=== PATIENT | male | born 1945 | race Caucasian/White ===

== ENCOUNTER → 2023-07-16 10:26 | Outpatient (REF) | payer MEDICARE, OTHER, SELFPAY | LOC: HWRAD 10:26 | PROVIDERS: ATTENDING PHYSICIAN Family Medicine | DX: E04.2 Nontoxic multinodular goiter (principal) | CPT/HCPCS: 76536 ==

== ENCOUNTER → 2024-02-11 15:18 | Outpatient (REF) | payer MEDICARE, OTHER, SELFPAY | LOC: RAD 15:18 | PROVIDERS: ATTENDING PHYSICIAN Nurse Practitioner Family; FAMILY PHYSICIAN Family Medicine | DX: R91.1 Solitary pulmonary nodule (principal) | CPT/HCPCS: 71250 ==

== ENCOUNTER 2024-03-09 14:15 | Inpatient (IN) | payer MEDICARE, OTHER, SELFPAY ==
[2024-03-09] VITALS (17 sets, daily range): BP systolic 128–177; BP diastolic 57–119; O2SAT 81–89; BMI 28.8; BMI 29.2
--- NOTE | 2024-03-09 07:18 | ED.GENMED ---
Addendum entered and electronically signed by RAJIV Silva 03/09/24 13:49:
1:25 PM CAlled to room by RN who reports that patient became tachycardic in the 140s. EKG SVT with heart rate of 143. Patient had no chest pain. He does feel palpitations.Dr Flores at bedside. pt denies any new SOB. At that same time patient was
being evaluated by admitting hospitalist the patient spontaneously converted approximately 1:45 PM.
Patient re angelica sinus tach no acute distress
Original Note:
History of Present Illness
General
Chief Complaint: Weakness
Source: patient
Exam Limitations: none
Time Seen by Provider: 03/09/24 07:16
Nursing documentation reviewed up to this point in time: agreed with
History of Present Illness
History of Present Illness:
Patient is a 78-year-old male with past medical history of COPD chronic bronchitis asthma tachycardia and reflux presents today for evaluation. Patient reports he was sick a week with runny nose cough cold symptoms however this morning woke up
complaining of shortness of breath and feels very weak. He is not on O2 at home.
He reports he heard himself wheezing or' rattling this morning when breathing.'
He denies any chest pain. He denies any lower extremity swelling. No prior history of CHF.
Past History
Past History
ED Past Medical History: Asthma, COPD, GERD, HTN and Other (History of hiatal hernia, polyps, prostatic hypertrophy, macular degeneration, dry eyes)
ED Past Surgical History: Cardiac (Cardiac catheterization x2 which was normal) and Other (Right knee arthroscopy in the year 1999)
Social History
Tobacco: Former smoker
Alcohol: None
Personal:
Living: with family
Employment: Retired
Family History
Family History: Unable to obtain
Review of Systems
Review of Systems
Allergies reviewed?: Yes
All Other Systems: ROS reviewed and negative except as documented in HPI and ROS
Constitutional: Reports fatigue
Respiratory: Reports cough and trouble breathing
Cardiac: Reports no symptoms; Denies chest pain or palpitations
ABD/GI: Reports no symptoms; Denies diarrhea
: Reports no symptoms
Musculoskeletal: Reports no symptoms
Skin: Reports no symptoms
Neurological: Reports headache
Psychiatric: Reports no symptoms
Phy Exam
General Physical Exam
General Presentation: no apparent distress
General age: appears stated age
General Skin: warm and dry
General Habitus: elderly
General Mental: alert
General Hydration: dry mucous membranes
Course
Orders/Labs/Results
Orders:
Orders
03/09/24 07:28
IV Insert/Care/Rem.- Treatment PRN
03/09/24 07:29
Electrocardiogram (*1) Stat
Reason for Study: Other
Other Reason for Exam: chest pain
Cardiac Monitoring- Treatment ONCE
EKG- Treatment ONCE
CR Chest - 2 Views Urgent
Comment:
Reason For Exam: sob cough
03/09/24 07:31
0.9% Sodium Chloride 1000 ml [Nss] 1,000 ml IV BOLUS
03/09/24 07:35
Complete Blood Count/With Diff Urgent
Comprehensive Metabolic Panel Urgent
03/09/24 07:36
COVID-19 Antigen Urgent
Source: Nasal Swab
Influenza A+B Rapid Molecular Urgent
HEIDI Source: Nasal Swab
Specimen Description:
03/09/24 09:40
Acetaminophen [Tylenol] 650 mg PO NOW STA
Albuterol Nebs [Ventolin Nebules] 2.5 mg INH R NOW STA
03/09/24 11:31
Dexamethasone Sod Phosphate [Decadron] 10 mg IV NOW STA
Abnormal Lab Results
03/09/24
07:35
WBC 14.3 H 10^3/uL
(4.8-10.8)
Abs Immat Gran (auto) 0.1 H 10^3/uL
(0-0.05)
Absolute Neuts (auto) 12.7 H 10^3/uL
(1.4-6.5)
Absolute Lymphs (auto) 0.6 L 10^3/uL
(1.2-3.4)
Absolute Monos (auto) 0.9 H 10^3/uL
(0.1-0.6)
Neutrophils % 88.6 H %
(42.2-75.2)
Lymphocytes % 4.2 L %
(20.5-51.1)
Carbon Dioxide 21 L mmol/L
(22-30)
BUN 21 H mg/dl
(9-20)
Creatinine 1.4 H mg/dL
(0.7-1.3)
Glucose 164 H mg/dl
(70-99)
03/09/24 07:35
03/09/24 07:35
Vital Signs
Initial and Last Documented VS:
Initial Vital Signs
Temp Pulse Resp BP Pulse Ox
98.1 F 94 26 177/83 91
03/09/24 07:09 03/09/24 07:09 03/09/24 07:09 03/09/24 07:09 03/09/24 07:09
Last Documented Vital Signs
Temp Pulse Resp BP Pulse Ox
98.1 F 65 12 148/70 93
03/09/24 07:09 03/09/24 10:45 03/09/24 10:45 03/09/24 10:00 03/09/24 11:13
MDM/Problems Addressed
Differential Diagnosis Includes:
not limited to: COPD exacerbation, pneumonia, COVID, flu,
MDM/Problems Addressed:
Patient as documented is a 78-year-old male who has history of COPD not on O2 has been sick for the past week with bodyaches weakness cough however presented today with weakness and shortness of breath. Patient was hypoxic on room air white count
minimally out of 14.3. Patient has slight x-ray wheezing. Patient had an x-ray which is negative for pneumonia normal sodium potassium creatinine 1.4 however has been 1.4 in the past negative COVID-negative flu patient was given a nebulizer
treatment for wheezing likely COPD exacerbation related to viral syndrome however patient remains hypoxic in the 80s with ambulation and is not normally on O2 will admit for continued observation and nebulizer treatment steroids initially ordered
but patient reports he does not react well to steroids in the past, will hold off on steroids.
Patient has seen pulm here at [place].
*Radiology
Radiology exam reviewed: radiology read reviewed
*Pulse Oximetry
Patient hypoxic: yes
*EKG
Interpreted by ED Provider?: Yes
Interpretation: normal
Heart Rate: 71
Rhythm: sinus
Ischemia: non-specific ST changes
*Critical Care Note
Total Time (30-74mins, 75-104mins- exclusive of procedures): Not Applicable
ED Attending Note
-
Portions of this chart may have been created with voice recognition software.� Occasional wrong word or��sound alike� substitutions may have occurred due to the inherent limitations of voice recognition software.
Discharge Plan
Departure
Patient Disposition: Admit
Date of Disposition: 03/09/24
Time of Disposition: 11:51
Admit to: Med/Surg
Admit to doctor: hospitalist
Presentation/result/management discussed w/ accepting MD/DO: Hospitalist
Patient with high blood pressure during this ER visit?: Yes
Condition: Fair
Covid-19: Not Applicable
Discharge Problem:
COPD (chronic obstructive pulmonary disease), Acute viral syndrome, hypoxia
Prescriptions:
No Action
montelukast 10 MG tablet
10 mg PO QPM
dutasteride-tamsulosin 1 EACH capsule, ER multiphase 24 hr
1 ea PO QPM
Patient Comments:
0.5/ 0.4 mg strength
famotidine 20 mg Tablet
20 mg PO BID Qty: 0
diphenhydramine HCl [Benadryl] 25 mg Capsule
25 mg PO QPM
diltiazem HCl 360 mg capsule,extended release 24hr
360 mg PO QPM
Citrucel (sucrose) Powder
1 tbsp PO TID
albuterol sulfate 90 mcg/actuation Hfa Aerosol Inhaler
2 puff inhalation R Q4HPRN PRN (Reason: sob) Qty: 8.5 0RF
cholecalciferol (vitamin D3) [Vitamin D3] 25 mcg (1,000 unit) Capsule
25 mcg PO DAILY
levofloxacin 250 mg Tablet
250 mg PO DAILY Qty: 4 0RF
Rx Instructions:
next dose 09/01
prednisone 10 mg tablet
10 mg PO DIRECTED 6 Days Qty: 6 0RF
Rx Instructions:
starting 09/01 take 30mg (3 tabs) x 2 days, then 20mg x 2 days, then 10mg x 2 days
Referrals:
Fadia Mcbride MD [Family Provider] -
Interventions
Interventions:
*Risk Screen - Suicide Last Done: 03/09/24 07:11
*General Assessment Last Done: 03/09/24 07:31
*Neglect/Abuse Screening Last Done: 03/09/24 07:11
ED- Fall Risk Assessment Last Done: 03/09/24 07:31
*ED COVID-19 Vaccine History Last Done: 03/09/24 07:31
ED- Cardiac Assessment Last Done: 03/09/24 07:34
ED- Neurological Assessment Last Done: 03/09/24 07:34
ED- Pulmonary Assessment Last Done: 03/09/24 07:34
Discharge Date and Time
Print Language: NICARAGUAN
[2024-03-09] MEDS: NSS 1000 IV ×2 (07:46→20:12)
[2024-03-09 07:59] LABS: % Basophils 0.3 % (0-2); % Eosinophils 0.4 % (0-6); % Immature Granulocytes 0.4 % (0-0.5); % Lymphocytes 4.2 % (20.5-51.1); % Monocytes 6.1 % (1.7-9.3); % Neutrophils 88.6 % (42.2-75.2); Absolute Eosinophils 0.1 10^3/uL (0-0.7); Absolute Immature Granulocytes 0.1 10^3/uL (0-0.05); Absolute Lymphocytes 0.6 10^3/uL (1.2-3.4); Absolute Monocytes 0.9 10^3/uL (0.1-0.6); Absolute Neutrophils 12.7 10^3/uL (1.4-6.5); Hematocrit 47.1 % (39.0-52.0); Hemoglobin 16.2 g/dL (13.0-18.0); Mean Corp Hgb Conc. 34.4 g/dL (33.0-37.0); Mean Corpuscular Volume 87.2 fL (80.0-94.0); Mean Platelet Volume 9.5 fL (7.4-10.4); Nucleated Red Blood Cells % 0 % (-); Platelet Count 228 10^3/uL (130-400); Red Cell Dist. Width 14.1 % (11.5-14.5); White Blood Cell Count 14.3 10^3/uL (4.8-10.8)
[2024-03-09 08:05] LABS: ALT (SGPT) 21 U/L (0-50); Albumin 3.9 g/dl (3.5-5.0); Alkaline Phosphatase 115 U/L (38-126); Blood Urea Nitrogen 21 mg/dl (9-20); Calcium 9.2 mg/dl (8.4-10.2); Carbon Dioxide 21 mmol/L (22-30); Chloride 106 mmol/L (98-107); Estimated Creatinine Clearance 41 ml/min; Potassium 4.4 mmol/L (3.5-5.1); Sodium 139 mmol/L (135-145); Total Bilirubin 0.8 mg/dl (0.2-1.3); Total Protein 6.4 g/dl (6.3-8.2); eGFR 51.77
[2024-03-09 08:06] LABS: AST (SGOT) 22 U/L (17-59); Glucose 164 mg/dl (70-99)
[2024-03-09 08:07] LABS: COVID-19 Antigen Negative (Negative)
[2024-03-09] MEDS: TYLENOL 650 MG PO ×2 (10:12→20:17)
[2024-03-09] MEDS: VENTOLIN NEBULES 2.5 MG INH (10:12)
--- NOTE | 2024-03-09 13:28 | HPS.HSE ---
Family Physician
-
Family Physician: Fadia Mcbride
Chief Complaint
-
SOB, wheeze, weakness
History of Present Illness
The patient is a 78-year-old male with PMH significant for COPD,chronic bronchitis, asthma, tachycardia, and GERD, presents today for evaluation due to one week of runny nose, cold and URI symptoms, and woke up this am with SOB and generalized
weakness, not on O2 at home. He has wheezing with 'rattling this morning when breathing.' He also has hx of SVT and takes nightly Cardizem. He took his dose last night. He says his heart rate this am at home was 20 on the pulse oximetry, unclear if
this is an accurate reading - no symptoms other than those noted with generalized weakness. In ED he went into SVT, and rhythm broke to sinus after Valsalva and blowing into a tube. He is currently on 5 L O2 per NC, appears to be mouth breathing
more than through NC.
He denies any chest pain. He denies any lower extremity swelling. Desat to 80s in ED on RA despite ED txt.
COVID and Flu negative
WBC 14.3
CXR NAD
Medical History
Past Medical History
Past Medical History: Reports COPD, GERD, HTN and Other
Additional Past Medical History:
BPH
Past Surgical History: Reports Cholecystectomy and Other
Additional Past Surgical History:
Shoulder Surgery
Knee Arthroscopy
Social History
Tobacco: Former Smoker (Quit smoking 25 years ago. Approx 40 pack years total use.)
Alcohol: None
Drug: None
Personal:
Living: With Family
Family History
Family History: Other (Mother: Longevity)
Allergies / Home Medications
Allergies reflects when Allergies were last updated in [facility].
Home Medications with original date entered in [facility]
Allergy/Medication List:
Allergies
Allergy/AdvReac Type Severity Reaction Status Date / Time
amoxicillin Allergy Unknown Verified 09/13/22 19:48
amoxicillin trihydrate Allergy Unknown Verified 09/13/22 19:48
[From Augmentin]
Cephalosporins Allergy Unknown Verified 09/13/22 19:48
clavulanic acid Allergy Unknown Verified 09/13/22 19:48
fluticasone furoate Allergy muscle Verified 09/13/22 19:48
[From Arnuity Ellipta] aches
fluticasone propionate Allergy Unknown Verified 09/13/22 19:48
[From Advair Diskus]
guaifenesin [From Breonesin] Allergy muscle Verified 09/13/22 19:48
aches
potassium clavula Allergy Unknown Verified 09/13/22 19:48
*RETIRED-02/20/12
[From Augmentin]
salmeterol xinafoate Allergy Unknown Verified 09/13/22 19:48
[From Advair Diskus]
albuterol AdvReac headache Verified 09/13/22 19:48
asthmanex Allergy Unknown Uncoded 09/07/22 18:51
servent Allergy Unknown Uncoded 09/07/22 18:51
Home Medications
dutasteride 0.5 mg-tamsulosin ER 0.4 mg capsule ext.release 24hr mphas 1 ea PO QPM Urinary issue 04/15/17
famotidine 20 mg tablet 20 mg PO BID Gastrointestinal issue ##0 04/15/17
montelukast 10 mg tablet 10 mg PO QPM Allergies 04/15/17
diphenhydramine HCl 25 mg capsule (Benadryl) 25 mg PO QPM Sleep 02/04/22
diltiazem HCl 360 mg capsule,extended release 24 hr 360 mg PO QPM Blood pressure 08/14/22
methylcellulose (with sugar) oral powder (Citrucel (sucrose) oral powder) 1 tbsp PO TID Constipation 08/14/22
albuterol sulfate 90 mcg/actuation aerosol inhaler 2 puff inhalation R Q4HPRN PRN sob #8.5 grams 08/17/22
budesonide 0.5 mg/2 mL suspension for nebulization 0.5 mg inhalation R DAILY 03/09/24
cholecalciferol (vitamin D3) 125 mcg (5,000 unit) tablet (Vitamin D3) 125 mcg PO DAILY 03/09/24
ibuprofen 200 mg tablet (Advil) 200 mg PO Q6HPRN PRN MILD PAIN 03/09/24
Review of Systems
-
A 12 point ROS was completed and negative except as noted: Yes
Physical Exam
Vital Signs
Vital Signs
Temp Pulse Resp BP Pulse Ox
98.6 F 72 17 149/57 90
03/09/24 13:17 03/09/24 13:00 03/09/24 13:00 03/09/24 13:00 03/09/24 13:00
Physical Exam
General: No Apparent Distress, Conversant and Other (purse lip breathing)
HEENT: NormoCephalic, Anicteric and Moist mucous membranes
Respiratory: Wheezes (Left mid and lower) and Other (decreased breath sounds b/l)
Cardiac: Tachycardia
GI: Soft, Non Tender and Non Distended
Musculoskeletal: No Clubbing, No Cyanosis and No Edema
Skin: Warm and Dry
Neuro: AO x 3 and No Motor Deficits
Psych: Calm and Intact Judgment/Insight
Laboratory Results
-
03/09/24 07:35
03/09/24 07:35
Laboratory Results
Total Bilirubin 0.8 mg/dl (0.2-1.3) 03/09/24 07:35
AST 22 U/L (17-59) 03/09/24 07:35
ALT 21 U/L (0-50) 03/09/24 07:35
Alkaline Phosphatase 115 U/L (38-126) 03/09/24 07:35
Data Reviewed
-
Diagnostic Radiology: Image Personally Visualized and interpreted and Report Reviewed by me ( 1. Chronic obstructive pulmonary disease. 2. Mild bibasilar interstitial opacities, similar compared to previous examinations, perhaps related to a chronic
infectious/inflammatory process or chronic interstitial lung disease.)
Impression/Plan
-
IMPRESSION:The patient is a 78-year-old male with PMH significant for COPD,chronic bronchitis, asthma, tachycardia, and GERD, presents today for evaluation due to one week of runny nose, cold and URI symptoms, and woke up this am with SOB and
generalized weakness, not on O2 at home. He has wheezing with 'rattling this morning when breathing.' He also has hx of SVT and takes nightly Cardizem. He took his dose last night. He says his heart rate this am at home was 20 on the pulse oximetry,
unclear if this is an accurate reading - no symptoms other than those noted with generalized weakness. In ED he went into SVT, and rhythm broke to sinus after Valsalva and blowing into a tube. He is currently on 5 L O2 per NC, appears to be mouth
breathing more than through NC.
He denies any chest pain. He denies any lower extremity swelling. Desat to 80s in ED on RA despite ED txt.
COVID and Flu negative
WBC 14.3
CXR NAD
#COPD exacerbation possibly precipitated by viral URI
-CXR w chronic findings:
1. Chronic obstructive pulmonary disease.
2. Mild bibasilar interstitial opacities, similar compared to previous examinations, perhaps related to a chronic infectious/inflammatory process or chronic interstitial lung disease.
-Pt has had reactions to steroids in the past, and is refusing steroids at this time (issues with hyperglycemia, required Lindquist catheter), hold on steroids for now
-Xopenex (due to arrythmia/SVT history) TID and prn
-Expectorant txt with RT/pulmonary toilet/cannot use Mucinex due to allergy muscle aches
-cont home dose Budesonide (on low dose due to history of headaches with full dose)
-Cont O2 5 liter, wean as able, and may need face mask-continue monitoring w RT
-consider Pulm Consult
#SVT, history of, in and out of SVT in ED, improved w maneuvers, asymptomatic
-will give Diltiazem home dose now then continue daily
-monitor on tele
#Hypertension
-cont Dilt, hold parameters
#GERD
-stable
#BPH
DVT proph-Lovenox
Full Code
--- NOTE | 2024-03-09 13:49 | EDRN ---
Pt's Tele alarming HR in 140's. EKG done to confirm ST. RN in room to check on pt's. Pt denies CP. VSS. Dr. Flores, Alexa [facility] [employer] and Dr. Stinson bedside to evaluate pt. Dr. Cason performed Carotid massage. Once pt leaned forward for MD to
auscultate lungs, pt's sustained 140's HR dropped to 80's, NSR. HR was sustained 140's for a total of 20 minutes. No new orders given at this time. Will continue to monitor. Spouse at bedside. Call umanzor within reach.
[2024-03-09] MEDS: CARDIZEM CD 360 MG PO (14:27)
[2024-03-09] MEDS: XOPENEX 1.25 MG INHALANT SOLUTION INH (19:58)
[2024-03-09] MEDS: PEPCID 20 MG PO (20:13)
[2024-03-09] MEDS: SINGULAIR 10 MG PO (20:14)
[2024-03-09] MEDS: LOVENOX 40 MG SC (20:14)
[2024-03-09] MEDS: BENADRYL 25 MG PO (20:18)
[2024-03-10 03:22] VITALS: BP 141/61
[2024-03-10 06:07] VITALS: BMI 29.5
[2024-03-10 07:54] VITALS: BP 166/67
[2024-03-10 08:18] LABS: % Basophils 0.2 % (0-2); % Eosinophils 0.8 % (0-6); % Immature Granulocytes 0.3 % (0-0.5); % Lymphocytes 8.5 % (20.5-51.1); % Monocytes 4.3 % (1.7-9.3); % Neutrophils 85.9 % (42.2-75.2); Absolute Eosinophils 0.1 10^3/uL (0-0.7); Absolute Monocytes 0.5 10^3/uL (0.1-0.6); Absolute Neutrophils 10.1 10^3/uL (1.4-6.5); Hematocrit 43.7 % (39.0-52.0); Mean Corp Hgb Conc. 34.3 g/dL (33.0-37.0); Mean Corpuscular Hgb 31.2 pg (27.0-31.0); Mean Corpuscular Volume 90.9 fL (80.0-94.0); Mean Platelet Volume 10.2 fL (7.4-10.4); Nucleated Red Blood Cells % 0 % (-); Platelet Count 209 10^3/uL (130-400); Red Blood Cell Count 4.81 10^6/uL (4.70-6.10); Red Cell Dist. Width 14.3 % (11.5-14.5); White Blood Cell Count 11.8 10^3/uL (4.8-10.8)
[2024-03-10] MEDS: XOPENEX 1.25 MG INHALANT SOLUTION INH (08:18)
[2024-03-10] MEDS: PULMICORT 0.5 MG INH (08:18)
[2024-03-10 08:56] LABS: Blood Urea Nitrogen 19 mg/dl (9-20); Calcium 8.5 mg/dl (8.4-10.2); Carbon Dioxide 24 mmol/L (22-30); Chloride 108 mmol/L (98-107); Estimated Creatinine Clearance 44 ml/min; Glucose 103 mg/dl (70-99); Potassium 4.5 mmol/L (3.5-5.1); Sodium 141 mmol/L (135-145); eGFR 56.58
[2024-03-10] MEDS: PEPCID 20 MG PO ×2 (09:04→20:12)
[2024-03-10] MEDS: MOTRIN 200 MG PO (09:10)
--- NOTE | 2024-03-10 10:36 | PTCARENOTE ---
Patient had a brief burst of tachycardia 130-140. Patient was symptomatic with headache, tingling around his mouth and new pain in his upper thighs. Patient now in a SR 60-80. Patient states, 'This feels like before in the emergency room. I don't
feel good.' Physician made aware.
[2024-03-10 11:00] VITALS: BP 146/64
--- NOTE | 2024-03-10 11:23 | CM ---
CM reviewed chart, met with patient bedside. Patient resides with his in a cape code style home, six steps to enter. Patient denies use of DMe, denies VN or SNF history. Patient currently on O2, not on home O2. Patient confirms PCP Fadia
Rae, pharmacy [facility] [address] Patient confirms prescription coverage, denies insecurities at home. CM will continue to follow for all discharge planning needs.
Plan; home no needs, watch for home O2 needs.
[2024-03-10] MEDS: DELTASONE 40 MG PO (12:38)
--- NOTE | 2024-03-10 13:01 | W.PN.HOSP.TC ---
Today's Communication/Plan
-
Start systemic steroids
Pulmonary consultation
Wean oxygen as tolerated
Monitor on telemetry
Assessment / Plan
Assessment / Plan
IMPRESSION:The patient is a 78-year-old male with PMH significant for COPD,chronic bronchitis, asthma, tachycardia, and GERD, presents today for evaluation due to one week of runny nose, cold and URI symptoms, and woke up this am with SOB and
generalized weakness, not on O2 at home. He has wheezing with 'rattling this morning when breathing.' He also has hx of SVT and takes nightly Cardizem. He took his dose last night. He says his heart rate this am at home was 20 on the pulse oximetry,
unclear if this is an accurate reading - no symptoms other than those noted with generalized weakness. In ED he went into SVT, and rhythm broke to sinus after Valsalva and blowing into a tube. He is currently on 5 L O2 per NC, appears to be mouth
breathing more than through NC.
He denies any chest pain. He denies any lower extremity swelling. Desat to 80s in ED on RA despite ED txt.
COVID and Flu negative
WBC 14.3
CXR NAD
#COPD exacerbation possibly precipitated by viral URI
# Acute hypoxic respiratory failure
-CXR noted
-Started on prednisone
-Xopenex (due to arrythmia/SVT history) prn
-Expectorant txt with RT/pulmonary toilet/cannot use Mucinex due to allergy muscle aches
-cont home dose Budesonide (on low dose due to history of headaches with full dose)
-Cont Oxygen and wean as tolerated
-Pulm consulted.
#SVT, history
-Cont cardizem
-monitor on tele
#Hypertension
-cont Dilt, hold parameters
#GERD
-stable
#BPH
-cont flomax
DVT proph-Lovenox
Full Code
Anticipated Discharge: > 48 hours
Subjective/Interval History
-
Date of Service: March 10, 2024
states of sob
was tachycardic earlier
had cold last week
Objective Data
-
Labs:
Laboratory Results
03/10/24
07:37
WBC 11.8 H
Hgb 15.0
Hct 43.7
Plt Count 209
Sodium 141
Potassium 4.5
Chloride 108 H
Carbon Dioxide 24
BUN 19
Creatinine 1.3
Glucose 103 H
Calcium 8.5
Vital Signs:
Vital Signs
Temp Pulse Resp BP Pulse Ox
99.6 F 69 16 146/64 92
03/10/24 11:00 03/10/24 11:00 03/10/24 11:00 03/10/24 11:00 03/10/24 11:00
I&O
03/09/24 03/10/24 03/11/24
06:59 06:59 06:59
Intake Total 1000 / 1000
Output Total 175 / 175
Balance 825 / 825
Physical Exam
-
General: Well Developed and No Apparent Distress
HEENT: Normocephalic, Atraumatic, Moist Mucous Membranes and Oxygen
Respiratory: Wheezes and Decreased Breath Sounds
Cardiac: Regular Rhythm and S1/S2; Negative Murmur, Rub or Gallop
GI: Soft, Nontender, Nondistended and Normal Bowel Sounds; Negative Organomegaly
Rectal: Deferred by Provider
Musculoskeletal: No Clubbing, No Cyanosis and No Edema
Skin: Negative Rash
Neuro: Awake, AO x 3, Tremors and Nonfocal/Grossly Intact
Psych: Anxious
Data Reviewed
-
Total Time Spent with Patient (in minutes): 51
[2024-03-10 15:00] VITALS: BP 157/66
[2024-03-10] MEDS: CARDIZEM CD 360 MG PO (17:49)
[2024-03-10] MEDS: LOVENOX 40 MG SC (17:50)
[2024-03-10] MEDS: SINGULAIR 10 MG PO (17:50)
[2024-03-10] MEDS: BENADRYL 25 MG PO (17:50)
[2024-03-10 19:30] VITALS: BP 163/70
[2024-03-10] MEDS: NON-FORMULARY ITEM 1 TAB PO (20:11)
[2024-03-10] MEDS: SENOKOT-S 1 TABLET PO (20:13)
[2024-03-10 23:34] VITALS: BP 155/68
[2024-03-11] VITALS (7 sets, daily range): BP systolic 134–165; BP diastolic 64–74; PULSE 65; O2SAT 94; BMI 29.2
[2024-03-11] MEDS: PULMICORT 0.5 MG INH (07:38)
[2024-03-11] MEDS: MIRALAX 17 GRAMS PO (08:12)
[2024-03-11] MEDS: DELTASONE 40 MG PO (08:13)
[2024-03-11] MEDS: SENOKOT-S 1 TABLET PO ×2 (08:13→19:40)
[2024-03-11] MEDS: PEPCID 20 MG PO ×2 (08:13→19:40)
--- NOTE | 2024-03-11 10:19 | CON.PUL ---
Consultation
Consultation Request
Date/Time Consultation Requested: 03/11/2024-7 AM
Date/Time Consultation Performed: 03/11/2024-7:30 AM
Requesting Provider: Hospitalist
Performing Provider: Dr. Candelario
Reason for Consultation: COPD
Medical History
-
Chief Complaint: Shortness of breath
History of Present Illness:
78-year-old male with underlying COPD followed by Dr. Allison as well as chronic bronchitis, asthma, GERD who presented with shortness of breath and increased generalized weakness had an episode of SVT which broke into sinus after Valsalva and
pulmonary consulted for COPD 03/11/2024.. The patient does complain of some increased shortness of breath from his baseline. He denies any chest pain, chest tightness, has some wheezing, no congestion, productive cough, pleurisy, abdominal pain,
reflux, leg swelling or weakness.
Past Medical History
Past Medical History: None (COPD. Chronic bronchitis. Asthma. GERD. Hypertension. BPH. Paroxysmal atrial tachycardia. Osteoporosis. Chronic kidney disease.)
Social History
Tobacco: Former Smoker (50 pack-year quit 1995)
Alcohol: None
Drug: None
Personal:
Living: With Family
Occupational Exposures: No known asbestos exposure
Environmental Exposures: No known tuberculosis exposure
Family History
Family History: Other (Father-brain tumor. Mother-heart disease.)
Allergies / Home Medications
Allergies
Allergy/AdvReac Type Severity Reaction Status Date / Time
amoxicillin Allergy Unknown Verified 09/13/22 19:48
amoxicillin trihydrate Allergy Unknown Verified 09/13/22 19:48
[From Augmentin]
Cephalosporins Allergy Unknown Verified 09/13/22 19:48
clavulanic acid Allergy Unknown Verified 09/13/22 19:48
fluticasone furoate Allergy muscle Verified 09/13/22 19:48
[From Arnuity Ellipta] aches
fluticasone propionate Allergy Unknown Verified 09/13/22 19:48
[From Advair Diskus]
guaifenesin [From Breonesin] Allergy muscle Verified 09/13/22 19:48
aches
mometasone furoate Allergy Unknown Verified 03/10/24 17:40
[From Asmanex Twisthaler]
potassium clavula Allergy Unknown Verified 09/13/22 19:48
*RETIRED-02/20/12
[From Augmentin]
salmeterol [From Serevent] Allergy Vomiting Verified 03/10/24 17:40
salmeterol xinafoate Allergy Unknown Verified 09/13/22 19:48
[From Advair Diskus]
albuterol AdvReac headache Verified 09/13/22 19:48
Home Medications
�Medication �Instructions �Recorded �Confirmed �Last Taken �Type
dutasteride 0.5 mg-tamsulosin ER 1 ea PO QPM Urinary issue 04/15/17 03/09/24 03/08/24 History
0.4 mg capsule ext.release 24hr
mphas
famotidine 20 mg tablet 20 mg PO BID Gastrointestinal 04/15/17 03/09/24 03/09/24 History
issue ##0
montelukast 10 mg tablet 10 mg PO QPM Allergies 04/15/17 03/09/24 03/08/24 History
diphenhydramine HCl 25 mg capsule 25 mg PO QPM Sleep 02/04/22 03/09/24 03/08/24 History
(Benadryl)
diltiazem HCl 360 mg 360 mg PO QPM Blood pressure 08/14/22 03/09/24 03/08/24 History
capsule,extended release 24 hr
methylcellulose (with sugar) oral 1 tbsp PO TID Constipation 08/14/22 03/09/24 03/09/24 History
powder (Citrucel (sucrose) oral
powder)
albuterol sulfate 90 mcg/actuation 2 puff inhalation R Q4HPRN PRN sob 08/17/22 03/09/24 Unknown Rx
aerosol inhaler #8.5 grams
budesonide 0.5 mg/2 mL suspension 0.5 mg inhalation R DAILY 03/09/24 03/09/24 03/09/24 History
for nebulization Lung/Breathing Issues
cholecalciferol (vitamin D3) 125 125 mcg PO DAILY Supplement 03/09/24 03/09/24 03/09/24 History
mcg (5,000 unit) tablet (Vitamin
D3)
ibuprofen 200 mg tablet (Advil) 200 mg PO Q6HPRN PRN MILD PAIN 03/09/24 03/09/24 03/09/24 History
Review of Systems
-
Unable to Obtain full review of systems at this time due to: Other (Per HPI)
Vitals / Labs / Diagnostic Testing
Vital Signs
Temp Pulse Resp BP Pulse Ox
97.4 F 68 18 163/74 94
03/11/24 07:57 03/11/24 07:57 03/11/24 07:57 03/11/24 07:57 03/11/24 07:57
Lab Data
03/10/24 07:37
03/10/24 07:37
Microbiology
03/09/24 07:36 Nasal Swab Influenza Types A & B (GEMINI) - Final
Negative for Influenza A & B, NAAT
Negative results must be combined with clinical observations
and patient history.
Nucleic Acid Amplification test (NAAT)performed on the
[employer] platform.
Diagnostic Testing:
Physical Exam
-
Exam:
Well-nourished and well-developed in no apparent distress
HEENT-atraumatic, normocephalic
Neck-supple, no JVD, no bruit
Heart-regular rate and rhythm-no murmurs, rubs or gallops
Chest with diminished breath sounds, prolonged expiratory time and few expiratory wheezes
Back-no tenderness
Abdomen-soft, nontender, nondistended, no hepatosplenomegaly
Extremities-no cyanosis, clubbing, edema and good peripheral pulses
Integument-intact, no rashes, lesions or ecchymosis
Neurology-alert and oriented, nonfocal motor and sensory exam
Assessment
-
78-year-old male with underlying COPD followed by Dr. Allison as well as chronic bronchitis, asthma, GERD who presented with shortness of breath and increased generalized weakness had an episode of SVT which broke into sinus after Valsalva and
pulmonary consulted for COPD 03/11/2024.
COPD with acute exacerbation.
Viral bronchitis.
SVT-broke in the emergency room with Valsalva.
Mild leukocytosis-WBC 14.3.
Mild hyperglycemia
Conditions present prior to admission:
COPD.
Chronic bronchitis.
Asthma.
Pulmonary nodule
Pulm hypertension
Decreased diffusing capacity
Overweight
GERD.
Hypertension.
Osteoporosis
Vitamin D deficiency
Chronic kidney disease
Cholecystectomy. Bilateral cataract surgery. Laser surgery for glaucoma. Shoulder surgery. Tonsillectomy.
Plan
History and presentation consistent with COPD exacerbation.
Supplemental oxygen as needed.
Assessment discharge. Supplemental oxygen needs prior to discharge.
Continue inhalers.
Nebulizers-Xopenex and ipratropium, bromide-had SVT.
Mucolytic's.
Singulair continues
Mucus clearing devices
Prednisone 40 mg with slow taper.
Monitor for SVT recurrence.
Monitor blood sugar.
Insulin supplementation as needed.
DVT prophylaxis-on Lovenox.
GI prophylaxis-on famotidine.
Nutrition
Or immobilization
Patient last saw Dr. Allison 01/31/2023 and saw Katey VANCE in our office 02/25-will make appointment soon after discharge
Diagnostic data:
CXR 10/26/22: no acute findings. Hyperinflation. Mild basilar scar. Prior lower lobe opacity has resolved
Chest x-ray 03/09/24-COPD changes, mild basilar opacifications
CT of the chest 08/29/22. New patchy airspace disease in both lower lobes with a pattern suggesting bilateral pneumonia. There is a small pulmonary nodule. The site of previous airspace disease which is likely inflammatory. There are severe changes
of emphysema.
CT chest 02/11/24-patchy area opacifications, bilateral lower lobes and mild distal bronchiectasis and mucoid impactions, similar to prior films, no new suspicious or enlarging nodules, severe apical predominant centrilobular emphysema, dilated main
pulmonary artery up to 3.9 cm
Echo 10/27/22: Normal biventricular function, PA pressure 38
Echo 2014: Normal left ventricular size, thickness and function. Normal right ventricular systolic function with a top normal RV size. Mildly dilated right atrium. Dilated aortic root, mostly at the sinus of Valsalva and not beyond.
Michi 02/06/24: FVC 3.11/85%, FEV1 1.46/56%, ratio 47%.� No significant BD response.� Moderate obstruction
PFT 10/25/2022: FVC 4.19/118%, FEV1 1.78/70%, ratio 42%, 11% BD response in FEV1, post BD results FVC 4.46/126%, FEV1 1.98/78%, ratio 44%, TLC 6.69/106%, DLCO 8.55/38%, DLCO/VA
Data Reviewed
-
PFT: Report reviewed by me
EKG: Report reviewed by me
Radiology: Image personally visualized and interpreted and Report reviewed by me
CT Scan: Report reviewed by me
Medical Tests (Nuc Med, Echo etc): Report reviewed by me
Labs: Labs reviewed by me
Old Records: Reviewed
Total Time Spent with Patient (in minutes): 65
--- NOTE | 2024-03-11 11:53 | CM ---
CM reviewed chart, met with patient bedside. Patient denies any needs at this time. Patient remains on O2, will watch for home O2 needs. CM will continue to follow for all discharge planning needs.
Plan; return home, watch for O2 needs.
--- NOTE | 2024-03-11 12:17 | W.PN.HOSP.TC ---
Today's Communication/Plan
-
wean o2
Prednisone
pulm eval pending
PT eval
Assessment / Plan
Assessment / Plan
IMPRESSION:The patient is a 78-year-old male with PMH significant for COPD,chronic bronchitis, asthma, tachycardia, and GERD, presents today for evaluation due to one week of runny nose, cold and URI symptoms, and woke up this am with SOB and
generalized weakness, not on O2 at home. He has wheezing with 'rattling this morning when breathing.' He also has hx of SVT and takes nightly Cardizem. He took his dose last night. He says his heart rate this am at home was 20 on the pulse oximetry,
unclear if this is an accurate reading - no symptoms other than those noted with generalized weakness. In ED he went into SVT, and rhythm broke to sinus after Valsalva and blowing into a tube. He is currently on 5 L O2 per NC, appears to be mouth
breathing more than through NC.
He denies any chest pain. He denies any lower extremity swelling. Desat to 80s in ED on RA despite ED txt.
COVID and Flu negative
WBC 14.3
CXR NAD
#COPD exacerbation possibly precipitated by viral URI
# Acute hypoxic respiratory failure
-CXR noted
-Started on prednisone
-Xopenex (due to arrythmia/SVT history) prn
-Expectorant txt with RT/pulmonary toilet/cannot use Mucinex due to allergy muscle aches
-cont home dose Budesonide (on low dose due to history of headaches with full dose)
-Cont Oxygen and wean as tolerated
-Overall treatment/management difficult due to patient multiple allergies and side effects of medications
-Pulm consulted.
#SVT, history
-Cont cardizem
-monitor on tele
#Hypertension Primary
-cont Dilt, hold parameters
#GERD
-stable
#BPH
-cont flomax/dutasteride
DVT proph-Lovenox
Full Code
Anticipated Discharge: 24 - 48 hours
Subjective/Interval History
-
Date of Service: March 11, 2024
states sob has improved
Objective Data
-
Vital Signs:
Vital Signs
Temp Pulse Resp BP Pulse Ox
97.8 F 62 18 140/64 93
03/11/24 11:18 03/11/24 11:18 03/11/24 11:18 03/11/24 11:18 03/11/24 11:18
I&O
03/10/24 03/11/24 03/12/24
06:59 06:59 06:59
Intake Total 1000 / 1000 660 / 660
Output Total 175 / 175 1900 / 1900
Balance 825 / 825 -1240 / -1240
Physical Exam
-
General: Well Developed and No Apparent Distress
HEENT: Normocephalic, Atraumatic, Moist Mucous Membranes and Oxygen
Respiratory: Wheezes (improving) and Decreased Breath Sounds
Cardiac: Regular Rhythm and S1/S2; Negative Murmur, Rub or Gallop
GI: Soft, Nontender, Nondistended and Normal Bowel Sounds; Negative Organomegaly
Rectal: Deferred by Provider
Musculoskeletal: No Clubbing, No Cyanosis and No Edema
Skin: Negative Rash
Neuro: Awake, Alert, Oriented, AO x 3, Tremors and Nonfocal/Grossly Intact
Psych: Calm
[2024-03-11] MEDS: CARDIZEM CD 360 MG PO (17:19)
[2024-03-11] MEDS: LOVENOX 40 MG SC (17:19)
[2024-03-11] MEDS: NON-FORMULARY ITEM 1 TAB PO (17:19)
[2024-03-11] MEDS: BENADRYL 25 MG PO (17:20)
[2024-03-11] MEDS: SINGULAIR 10 MG PO (17:21)
[2024-03-12 03:30] VITALS: BP 140/70
[2024-03-12 05:03] VITALS: BMI 28.9
[2024-03-12] MEDS: PULMICORT 0.5 MG INH (07:21)
[2024-03-12 07:44] VITALS: BP 166/77
[2024-03-12] MEDS: MIRALAX 17 GRAMS PO (08:04)
[2024-03-12] MEDS: TYLENOL 650 MG PO (08:09)
[2024-03-12] MEDS: SENOKOT-S 1 TABLET PO ×2 (08:09→20:25)
[2024-03-12] MEDS: PEPCID 20 MG PO (08:09)
[2024-03-12] MEDS: DELTASONE 40 MG PO (08:09)
--- NOTE | 2024-03-12 09:08 | W.PN.PUL.V3 ---
Today's Communication / Plan
-
Penicillin with slow wean.
Wean oxygen.
Continue nebulizers and inhalers.
Outpatient pulmonary follow-up
Assessment
-
78-year-old male with underlying COPD followed by Dr. Allison as well as chronic bronchitis, asthma, GERD who presented with shortness of breath and increased generalized weakness had an episode of SVT which broke into sinus after Valsalva and
pulmonary consulted for COPD 03/11/2024.
COPD with acute exacerbation.
Viral bronchitis.
SVT-broke in the emergency room with Valsalva.
Mild leukocytosis-WBC 14.3.
Mild hyperglycemia
Conditions present prior to admission:
COPD.
Chronic bronchitis.
Asthma.
Pulmonary nodule
Pulm hypertension
Decreased diffusing capacity
Overweight
GERD.
Hypertension.
Osteoporosis
Vitamin D deficiency
Chronic kidney disease
Cholecystectomy. Bilateral cataract surgery. Laser surgery for glaucoma. Shoulder surgery. Tonsillectomy.
Plan
Respiratory status slowly improving-not quite back to his baseline.
Supplemental oxygen as needed.
Assessment discharge supplemental oxygen needs prior to discharge.
Continue inhalers.
Nebulizers-Xopenex and ipratropium bromide-had SVT.
Mucolytics
Singulair continues
Mucus clearing devices
Prednisone 40 mg with slow taper
Monitor for SVT recurrence.
Monitor blood sugar.
Insulin supplementation as needed.
DVT prophylaxis-on Lovenox.
GI prophylaxis-on famotidine.
Nutrition
Increase activity
Patient last saw Dr. Allison 01/31/2023 and saw Katey VANCE in our office 02/25-will make appointment soon after discharge
Diagnostic data:
CXR 10/26/22: no acute findings. Hyperinflation. Mild basilar scar. Prior lower lobe opacity has resolved
Chest x-ray 03/09/24-COPD changes, mild basilar opacifications
CT of the chest 08/29/22. New patchy airspace disease in both lower lobes with a pattern suggesting bilateral pneumonia. There is a small pulmonary nodule. The site of previous airspace disease which is likely inflammatory. There are severe changes
of emphysema.
CT chest 02/11/24-patchy area opacifications, bilateral lower lobes and mild distal bronchiectasis and mucoid impactions, similar to prior films, no new suspicious or enlarging nodules, severe apical predominant centrilobular emphysema, dilated main
pulmonary artery up to 3.9 cm
Echo 10/27/22: Normal biventricular function, PA pressure 38
Echo 2014: Normal left ventricular size, thickness and function. Normal right ventricular systolic function with a top normal RV size. Mildly dilated right atrium. Dilated aortic root, mostly at the sinus of Valsalva and not beyond.
Michi 02/06/24: FVC 3.11/85%, FEV1 1.46/56%, ratio 47%.� No significant BD response.� Moderate obstruction
PFT 10/25/2022: FVC 4.19/118%, FEV1 1.78/70%, ratio 42%, 11% BD response in FEV1, post BD results FVC 4.46/126%, FEV1 1.98/78%, ratio 44%, TLC 6.69/106%, DLCO 8.55/38%, DLCO/VA
Subjective Data
-
Date of Service:
Date of Service: March 12, 2024
Chief Complaint: Pulmonary Follow Up and Dyspnea Follow Up
Subjective:
Had episode of cough and shortness of breath this morning, improved, responding to nebulizers, has nebulizers at home, no chest pain, productive cough, has not productive cough and no abdominal pain
Review of Systems
General: Other ( per HPI)
Objective Data
Data Reviewed
Vital Signs / I&O:
Vital Signs
Temp Pulse Resp BP Pulse Ox
98.3 F 69 12 166/77 93
03/12/24 07:44 03/12/24 07:44 03/12/24 07:44 03/12/24 07:44 03/12/24 07:44
Intake and Output
03/11/24 03/12/24 03/13/24
06:59 06:59 06:59
Intake Total 660 / 660 1120 / 1120
Output Total 1900 / 1900 250 / 250
Balance -1240 / -1240 870 / 870
SaO2: 93
Nasal Cannula flow liters per minute: 3.5
Physical Exam
General: Respiratory Distress (n) and Comfortable
HEENT: Normocephalic and Anicteric
Cardiovascular: Regular Rhythm
Respiratory: Clear ( diminished breath sounds and prolonged expiratory time), Wheeze ( forced expiratory), Crackles, Non-Labored Respirations, Accessory Resp Muscle Use (n) and Stridor (n)
GI: Soft, Non Distended and Non Tender
Neurology: Awake, Alert and No Motor Deficits
Skin: Warm, Good Color, Cyanosis (n), Jaundice (n) and Rash (n)
Labs/Micro/Reports
Lab Data
03/10/24 07:37
03/10/24 07:37
Microbiology
03/09/24 07:36 Nasal Swab Influenza Types A & B (GEMINI) - Final
Negative for Influenza A & B, NAAT
Negative results must be combined with clinical observations
and patient history.
Nucleic Acid Amplification test (NAAT)performed on the
[facility] platform.
[2024-03-12 11:31] VITALS: BP 149/71
--- NOTE | 2024-03-12 11:38 | CM ---
CM reviewed chart, per PT, no skilled PT needs. Patient remains on O2. CM will continue to follow for all discharge planning needs.
Plan; home when stable, watch for O2 needs.
--- NOTE | 2024-03-12 11:38 | W.PN.HOSP.TC ---
Today's Communication/Plan
-
po steroids taper
wean o2 as tolerated
Pulm recs
Assessment / Plan
Assessment / Plan
IMPRESSION:The patient is a 78-year-old male with PMH significant for COPD,chronic bronchitis, asthma, tachycardia, and GERD, presents today for evaluation due to one week of runny nose, cold and URI symptoms, and woke up this am with SOB and
generalized weakness, not on O2 at home. He has wheezing with 'rattling this morning when breathing.' He also has hx of SVT and takes nightly Cardizem. He took his dose last night. He says his heart rate this am at home was 20 on the pulse oximetry,
unclear if this is an accurate reading - no symptoms other than those noted with generalized weakness. In ED he went into SVT, and rhythm broke to sinus after Valsalva and blowing into a tube. He is currently on 5 L O2 per NC, appears to be mouth
breathing more than through NC.
He denies any chest pain. He denies any lower extremity swelling. Desat to 80s in ED on RA despite ED txt.
COVID and Flu negative
WBC 14.3
CXR NAD
#COPD exacerbation possibly precipitated by viral URI
# Acute hypoxic respiratory failure
-CXR noted
-Started on prednisone 40mg and will probably require slow taper
-Xopenex (due to arrythmia/SVT history) prn
-Expectorant txt with RT/pulmonary toilet/cannot use Mucinex due to allergy muscle aches
-cont home dose Budesonide (on low dose due to history of headaches with full dose)
-Cont Oxygen and wean as tolerated
-Overall treatment/management difficult due to patient multiple allergies and side effects of medications
-remains on oxygen around 3-4L. wean as tolerated to keeps sats >88%.
-Pulm consulted.
#SVT, history
-Cont cardizem
-monitor on tele
#Hypertension Primary
-cont Dilt, hold parameters
#GERD
-stable
#BPH
-cont flomax/dutasteride
DVT proph-Lovenox
Full Code
PT/OT-Home VN.
Anticipated Discharge: 24 - 48 hours
Subjective/Interval History
-
Date of Service: March 12, 2024
states had anxiety attack earlier this morning
remains on oxygen
dry cough persists
Objective Data
-
Vital Signs:
Vital Signs
Temp Pulse Resp BP Pulse Ox
98.3 F 60 14 149/71 93
03/12/24 11:31 03/12/24 11:31 03/12/24 11:31 03/12/24 11:31 03/12/24 11:31
I&O
03/11/24 03/12/24 03/13/24
06:59 06:59 06:59
Intake Total 660 / 660 1120 / 1120
Output Total 1900 / 1900 250 / 250
Balance -1240 / -1240 870 / 870
Physical Exam
-
General: Well Developed and No Apparent Distress
HEENT: Normocephalic, Atraumatic, Moist Mucous Membranes and Oxygen
Respiratory: Decreased Breath Sounds
Cardiac: Regular Rhythm and S1/S2; Negative Murmur, Rub or Gallop
GI: Soft, Nontender, Nondistended and Normal Bowel Sounds; Negative Organomegaly
Rectal: Deferred by Provider
Musculoskeletal: No Clubbing, No Cyanosis and No Edema
Skin: Negative Rash
Neuro: Awake, Alert, Oriented, AO x 3, Tremors and Nonfocal/Grossly Intact
Psych: Anxious
[2024-03-12 15:49] VITALS: BP 152/71
[2024-03-12] MEDS: NON-FORMULARY ITEM 1 TAB PO (17:44)
[2024-03-12] MEDS: SINGULAIR 10 MG PO (17:45)
[2024-03-12] MEDS: CARDIZEM CD 360 MG PO (17:45)
[2024-03-12] MEDS: LOVENOX 40 MG SC (17:45)
[2024-03-12] MEDS: BENADRYL 25 MG PO (17:46)
[2024-03-12 19:57] VITALS: BP 162/62
[2024-03-12 23:36] VITALS: BP 157/85
[2024-03-13 03:33] VITALS: BP 151/65
[2024-03-13 05:30] VITALS: BMI 29.2
[2024-03-13 07:00] VITALS: BP 145/64
[2024-03-13] MEDS: XOPENEX 1.25 MG INHALANT SOLUTION INH (07:39)
[2024-03-13] MEDS: PULMICORT 0.5 MG INH (07:39)
--- NOTE | 2024-03-13 08:00 | PTCARENOTE ---
Addendum entered by Monisha Quinn RN 03/13/24 08:37:
Pulse ox on 2L N/C 94%. Pt denies shortness of breath.
Original Note:
Pulse ox on RA -, O2 2L placed via N/C.
[2024-03-13] MEDS: DELTASONE 40 MG PO (08:10)
[2024-03-13] MEDS: PEPCID 20 MG PO (08:11)
[2024-03-13] MEDS: SENOKOT-S 1 TABLET PO (08:11)
[2024-03-13] MEDS: MIRALAX 17 GRAMS PO (08:11)
[2024-03-13] MEDS: TYLENOL 650 MG PO (08:11)
--- NOTE | 2024-03-13 09:54 | W.PN.PUL.V3 ---
Today's Communication / Plan
-
Prednisone taper.
Nebulizers.
Inhalers.
Outpatient pulmonary follow-up
Assessment
-
78-year-old male with underlying COPD followed by Dr. Allison as well as chronic bronchitis, asthma, GERD who presented with shortness of breath and increased generalized weakness had an episode of SVT which broke into sinus after Valsalva and
pulmonary consulted for COPD 03/11/2024.
COPD with acute exacerbation.
Viral bronchitis.
SVT-broke in the emergency room with Valsalva.
Mild leukocytosis-WBC 14.3.
Mild hyperglycemia
Conditions present prior to admission:
COPD.
Chronic bronchitis.
Asthma.
Pulmonary nodule
Pulm hypertension
Decreased diffusing capacity
Overweight
GERD.
Hypertension.
Osteoporosis
Vitamin D deficiency
Chronic kidney disease
Cholecystectomy. Bilateral cataract surgery. Laser surgery for glaucoma. Shoulder surgery. Tonsillectomy.
Plan
.
Pulmonary status is improving.
Continue supplemental oxygen as needed
Assessment discharge supplemental oxygen needs prior to discharge.
Continue . His inhalers
Nebulizers-Xopenex and ipratropium bromide-had SVT.
Mucolytics
Singulair continues
Mucus clearing devices
Prednisone 40 mg continues with slow taper
Continue to monitor for SVT recurrence.
Monitor blood sugar.
Insulin supplementation as needed.
DVT prophylaxis-on Lovenox.
GI prophylaxis-on famotidine.
Nutrition
Increase activity
Patient last saw Dr. Allison 01/31/2023 and saw Katey VANCE in our office 02/25-will make appointment soon after discharge
Diagnostic data:
CXR 10/26/22: no acute findings. Hyperinflation. Mild basilar scar. Prior lower lobe opacity has resolved
Chest x-ray 03/09/24-COPD changes, mild basilar opacifications
CT of the chest 08/29/22. New patchy airspace disease in both lower lobes with a pattern suggesting bilateral pneumonia. There is a small pulmonary nodule. The site of previous airspace disease which is likely inflammatory. There are severe changes
of emphysema.
CT chest 02/11/24-patchy area opacifications, bilateral lower lobes and mild distal bronchiectasis and mucoid impactions, similar to prior films, no new suspicious or enlarging nodules, severe apical predominant centrilobular emphysema, dilated main
pulmonary artery up to 3.9 cm
Echo 10/27/22: Normal biventricular function, PA pressure 38
Echo 2014: Normal left ventricular size, thickness and function. Normal right ventricular systolic function with a top normal RV size. Mildly dilated right atrium. Dilated aortic root, mostly at the sinus of Valsalva and not beyond.
Michi 02/06/24: FVC 3.11/85%, FEV1 1.46/56%, ratio 47%.� No significant BD response.� Moderate obstruction
PFT 10/25/2022: FVC 4.19/118%, FEV1 1.78/70%, ratio 42%, 11% BD response in FEV1, post BD results FVC 4.46/126%, FEV1 1.98/78%, ratio 44%, TLC 6.69/106%, DLCO 8.55/38%, DLCO/VA
Subjective Data
-
Date of Service:
Date of Service: March 13, 2024
Chief Complaint: Pulmonary Follow Up and Dyspnea Follow Up
Subjective:
Feels better, less short of breath, though some dyspnea on exertion and some wheezing, no chest pain or abdominal pain
Review of Systems
General: Other ( per HPI)
Objective Data
Data Reviewed
Vital Signs / I&O:
Vital Signs
Temp Pulse Resp BP Pulse Ox
98.1 F 62 18 145/64 94
03/13/24 07:00 03/13/24 07:41 03/13/24 07:41 03/13/24 07:00 03/13/24 08:38
Intake and Output
03/12/24 03/13/24 03/14/24
06:59 06:59 06:59
Intake Total 1120 / 1120 1080 / 1080
Output Total 250 / 250
Balance 870 / 870 1080 / 1080
SaO2: 94
Nasal Cannula flow liters per minute: 2
Physical Exam
General: Respiratory Distress (n) and Comfortable
HEENT: Normocephalic and Anicteric
Cardiovascular: Regular Rhythm
Respiratory: Clear ( diminished breath sounds and prolonged expiratory time), Wheeze ( forced expiratory), Crackles, Non-Labored Respirations, Accessory Resp Muscle Use (n) and Stridor (n)
GI: Soft, Non Distended and Non Tender
Neurology: Awake, Alert and No Motor Deficits
Skin: Warm, Good Color, Cyanosis (n), Jaundice (n) and Rash (n)
Labs/Micro/Reports
Lab Data
03/10/24 07:37
03/10/24 07:37
--- NOTE | 2024-03-13 10:40 | CM ---
Addendum entered by Cristine Redding 03/13/24 11:39:
CM confirmed patient is current with [employer] for home O2.
Original Note:
CM reviewed chart, met with patient bedside. Patient reports he is hopeful for discharge home today. Patient reports he does have home oxygen through [employer], patient unsure the exact name of DME company. Patient confirms he does not need home O2 set
up, has it at home. CM reviewed IMM, signed, placed in chart. Patient reports his will provide transportation home. CM will continue to follow for all discharge planning needs.
Plan; home with , has home O2.
[2024-03-13 11:00] VITALS: BP 144/64
--- NOTE | 2024-03-13 11:47 | W.PN.HOSP.TC ---
Today's Communication/Plan
-
steroids taper
Assessment / Plan
Assessment / Plan
IMPRESSION:The patient is a 78-year-old male with PMH significant for COPD,chronic bronchitis, asthma, tachycardia, and GERD, presents today for evaluation due to one week of runny nose, cold and URI symptoms, and woke up this am with SOB and
generalized weakness, not on O2 at home. He has wheezing with 'rattling this morning when breathing.' He also has hx of SVT and takes nightly Cardizem. He took his dose last night. He says his heart rate this am at home was 20 on the pulse oximetry,
unclear if this is an accurate reading - no symptoms other than those noted with generalized weakness. In ED he went into SVT, and rhythm broke to sinus after Valsalva and blowing into a tube. He is currently on 5 L O2 per NC, appears to be mouth
breathing more than through NC.
He denies any chest pain. He denies any lower extremity swelling. Desat to 80s in ED on RA despite ED txt.
COVID and Flu negative
WBC 14.3
CXR NAD
#COPD exacerbation possibly precipitated by viral URI
# Acute hypoxic respiratory failure
-CXR noted
-Started on prednisone 40mg and will probably require slow taper
-Xopenex (due to arrhythmia/SVT history) prn
-Expectorant txt with RT/pulmonary toilet/cannot use Mucinex due to allergy muscle aches
-cont home dose Budesonide (on low dose due to history of headaches with full dose)
-Cont Oxygen and wean as tolerated
-Overall treatment/management difficult due to patient multiple allergies and side effects of medications
-now on 2L oxygen. Improvement. Patient is in need of oxygen on exertion due to pulse oximetry of 88-89% on room air at rest;
Patient was placed on 2L O2 via nasal cannula with saturation of 94%. Oxygen will help to improve hypoxemia.
Patient is mobile within the home. Prednisone has been discussed and is ineffective in treating hypoxemia-related symptoms.
Oxygen will improve the patient's symptoms.
-Pulm consulted.
#SVT, history
-Cont cardizem
-monitor on tele
#Hypertension Primary
-cont Dilt, hold parameters
#GERD
-stable
#BPH
-cont flomax/dutasteride
DVT proph-Lovenox
Full Code
PT/OT-Home VN.
More than 30 minutes spent in discharge including
Final examination of the patient
Summarizing hospital stay
Instructions for continuing care to all relevant caregivers
Preparation of discharge records, prescriptions, and referral forms
Total time spent (in minutes): 52
Anticipated Discharge: Today
Subjective/Interval History
-
Date of Service: March 13, 2024
states feeling alot better
no severe coughing episodes
Objective Data
-
Vital Signs:
Vital Signs
Temp Pulse Resp BP Pulse Ox
97.8 F 64 18 144/64 93
03/13/24 11:00 03/13/24 11:00 03/13/24 11:00 03/13/24 11:00 03/13/24 11:00
I&O
03/12/24 03/13/24 03/14/24
06:59 06:59 06:59
Intake Total 1120 / 1120 1080 / 1080
Output Total 250 / 250
Balance 870 / 870 1080 / 1080
Physical Exam
-
General: Well Developed and No Apparent Distress
HEENT: Normocephalic, Atraumatic, Moist Mucous Membranes and Oxygen
Respiratory: Decreased Breath Sounds (improvement in aeration)
Cardiac: Regular Rhythm and S1/S2; Negative Murmur, Rub or Gallop
GI: Soft, Nontender, Nondistended and Normal Bowel Sounds; Negative Organomegaly
Rectal: Deferred by Provider
Musculoskeletal: No Clubbing, No Cyanosis and No Edema
Skin: Negative Rash
Neuro: Awake, Alert, Oriented, AO x 3, Tremors and Nonfocal/Grossly Intact
Psych: Calm
--- NOTE | 2024-03-13 11:58 | RESPNOTE ---
Visited the patient for Home O2 assessment and patient is on oxygen always. He keeps 2 Lpm nasal cannula at home, and the ambulations did with oxygen. He was keeping his SpO2 93-90% all the time during ambulation with 2 Lpm oxygen.
--- NOTE | 2024-03-13 12:11 | W.DCSUMMARY ---
Discharge Summary
Discharge Data
Date of Admission: 03/09/24
Date of Discharge: 03/13/24
-
Pending Results: No
Hospital Course
78-year-old male with PMH significant for COPD,chronic bronchitis, asthma, tachycardia, and GERD, presents for evaluation due to one week of runny nose, cold and URI symptoms, and woke up with SOB and generalized weakness, not on O2 at home. He
has wheezing with 'rattling this morning when breathing.' He also has hx of SVT and takes nightly Cardizem. Upon admission he was found to have a severe hypoxic respiratory failure with 5 L of oxygenation requirement. Patient stated he did not
want bronchodilators nebulizing treatment as it makes him severely anxious and causes tremors. Patient was agreeable to be started on p.o. prednisone as he stated of side effects with IV Decadron. Pulmonary was consulted. Patient with slow
improvement with oral steroids. Patient oxygen requirement slowly down titrated. Patient was eval for home oxygenation and required 2 L of oxygenation. Patient has home oxygen at home and will continue to use it. Patient was here by physical and
Occupational Therapy discharged home. Patient was recommend to follow-up with pulmonary as outpatient. Patient was discharged on slow p.o. prednisone taper regimen.
Discharge Plan
-
Patient Disposition: Home (Routine Discharge)
Discharge Diagnosis/Procedures: Acute COPD exacerbation possibly precipitated by viral Upper respiratory tract infection
Acute hypoxic respiratory failure
Condition: Fair
Diet: As tolerated
Activity: With assistance and As tolerated
Driving Restrictions: As prior to admission
Referrals:
Sophie Allison MD [Active] - in one to two weeks (or MEDICAL RECORD CONSULTANT)
Fadia Mcbride MD [Family Provider] - in less than 1 week
Prescriptions:
New
prednisone 10 mg Tablet
See Rx Instructions .ROUTE .COMPLEX Qty: 30 0RF
Rx Instructions:
Take By Mouth:
40 mg daily x3 days, 30 mg daily x3 days,
20 mg daily x3 days, 10 mg daily x3 days.
Continued
montelukast 10 MG tablet
10 mg PO QPM
dutasteride-tamsulosin 1 EACH capsule, ER multiphase 24 hr
1 ea PO QPM
famotidine 20 mg Tablet
20 mg PO BID Qty: 0
diphenhydramine HCl [Benadryl] 25 mg Capsule
25 mg PO QPM
diltiazem HCl 360 mg capsule,extended release 24hr
360 mg PO QPM
Citrucel (sucrose) Powder
1 tbsp PO TID
albuterol sulfate 90 mcg/actuation Hfa Aerosol Inhaler
2 puff inhalation R Q4HPRN PRN (Reason: sob) Qty: 8.5 0RF
ibuprofen [Advil] 200 mg Tablet
200 mg PO Q6HPRN PRN (Reason: MILD PAIN)
budesonide 0.5 mg/2 mL Suspension For Nebulization
0.5 mg INHALATION R DAILY
cholecalciferol (vitamin D3) [Vitamin D3] 125 mcg (5,000 unit) Tablet
125 mcg PO DAILY
Discharge Orders:
Discharge Patient (As Directed); Ordered 03/13/24
Ordered By: Bishop Mays
Discharge Date and Time
Discharge Date/Time: 03/13/24 13:26
Print Language: ZIMBABWE[place]
== END 2024-03-13 13:26 | disposition home or self-care (01) | DRG 190 ==
LOC: 4 WEST ACU 14:15
PROVIDERS: Nurse Practitioner; ADMITTING PHYSICIAN Internal Medicine; ATTENDING PHYSICIAN Hospitalist; CONSULT PHYSICIAN Internal Medicine Critical Care Medicine; EMERGENCY PHYSICIAN Emergency Medicine; FAMILY PHYSICIAN Family Medicine
DX: J44.1 Chronic obstructive pulmonary disease with (acute) exacerbation (principal); J96.01 Acute respiratory failure with hypoxia; I47.10 Supraventricular tachycardia, unspecified; J44.0 Chronic obstructive pulmonary disease with (acute) lower respiratory infection; J06.9 Acute upper respiratory infection, unspecified; K21.9 Gastro-esophageal reflux disease without esophagitis; I12.9 Hypertensive chronic kidney disease with stage 1 through stage 4 chronic kidney disease, or unspecified chronic kidney disease; N18.9 Chronic kidney disease, unspecified; Z87.891 Personal history of nicotine dependence
CPT/HCPCS: 71046; 80048; 80053; 85025; 87502; 87811; 93005; 94640; 96360; 97162; 99285

== ENCOUNTER → 2025-02-10 07:39 | Outpatient (REF) | payer MEDICARE, OTHER, SELFPAY | LOC: RAD 07:39 | PROVIDERS: ATTENDING PHYSICIAN Internal Medicine Critical Care Medicine; FAMILY PHYSICIAN Family Medicine | DX: R06.02 Shortness of breath (principal) | CPT/HCPCS: 71046 ==

== ENCOUNTER 2025-05-04 18:28 | Emergency (ER) | payer MEDICARE, OTHER, SELFPAY ==
[2025-05-04 18:35] VITALS: BP 163/69
--- NOTE | 2025-05-04 20:03 | ED.GENMED ---
History of Present Illness
General
Chief Complaint: Male Genito-Urinary Symptoms
Source: patient and family
Time Seen by Provider: 05/04/25 19:47
History of Present Illness
History of Present Illness:
This patient is a 79-year-old male presents emergency department with complaints of difficulty fully urinating, urinary frequency, and burning with urination that started yesterday/last night. He denies flank pain, fever, chills, nausea, vomiting,
rash, drainage, bleeding, abdominal pain, chest pain, or other complaints. Patient is recently being treated for COPD exacerbation, and his nebulizer treatment was changed to albuterol Atrovent which he suspects is causing his symptoms. Patient
has a history of prostate enlargement and takes Flomax.
Past History
Past History
ED Past Medical History: Asthma, COPD, GERD, HTN and Other (History of hiatal hernia, polyps, prostatic hypertrophy, macular degeneration, dry eyes, kidney stones)
ED Past Surgical History: Cardiac (Cardiac catheterization x2 which was normal) and Other (Right knee arthroscopy in the year 1999)
Social History
Tobacco: Former smoker
Alcohol: None
Drug: None
Personal:
Living: with family
Employment: Retired
Family History
Family History: Unable to obtain
Phy Exam
Physical Exam
Physical Exam:
GENERAL: Alert , in no apparent distress, pleasant
EYE: pupils equal and reactive
NECK: Supple, no significant adenopathy.
ENT: o/p clr, mmm.
CARDIAC: Regular rate and rhythm .
LUNGS: Clear breath sounds bilaterally, no acute respiratory distress, no wheezes/rales/rhonchi
ABDOMEN: Soft, without focal tenderness, no r/g, no cvat
NEUROLOGICAL: Alert and oriented, no focal neuro deficits
SKIN: Warm and dry, skin intact.
MUSCULOSKELETAL: No edema, well perfused.
PSYCH: Normal and appropriate interaction.
: no bleeding,no rash, no swelling
Course
Orders/Labs/Results
Orders:
Orders
05/04/25 20:02
Bladder Scan- Treatment ONCE
05/04/25 20:56
Urinalysis Reflex To Culture Urgent
Date Specimen was Collected: 05/04/25
Time Specimen was Collected: 20:54
Urine Microscopic Reflex Cult Urgent
Abnormal Lab Results
05/04/25
20:56
Urine Bacteria (Reflex) Few A
(Negative)
Urine Albumin (Reflex) 1+ A
(Neg - Trace)
Vital Signs
Initial and Last Documented VS:
Initial Vital Signs
Temp Pulse Resp BP Pulse Ox
98.2 F 75 20 163/69 94
05/04/25 18:35 05/04/25 18:35 05/04/25 18:35 05/04/25 18:35 05/04/25 18:35
Last Documented Vital Signs
Temp Pulse Resp BP Pulse Ox
98.2 F 53 16 144/70 93
05/04/25 18:35 05/04/25 20:55 05/04/25 20:55 05/04/25 20:55 05/04/25 20:55
*Pulse Oximetry
SaO2: 94
Oxygen Mode of Delivery: Room air
Update Note
Update Note:
Patient presents to the Emergency Department with __dysuria, urinary hesitancy
Number and Complexity of Problems Addressed at the Encounter
� Chronic conditions affecting care:
� Acute Exacerbation and/or Progression of Chronic Illness:
� Differential Diagnosis includes: But not limited to urinary retention, prostate enlargement, UTI, kidney stone, etc. etc.
Amount and/or Complexity of Data to be Reviewed and Analyzed
� I performed an independent evaluation of and my interpretation is:
EKG:
CT:
Xrays:
Laboratory Studies: UA generally unremarkable, not suggestive of infection, no blood noted
Other:
� Review of other/old records reveals:
� Clinical information was obtained by an independent historian:
� Prescriptions/Medications Considered but not given:
� Further testing considered but not performed:
Risk of Complications and/or Morbidity or Mortality of Patient Management
� Social determinants of health affecting care:
� Discussion with other providers (PCP, Hospitalists, Consultants, etc):
� Escalation of care including admission/observation vs risk of discharge considered: I think kidney stone as a cause of symptoms highly unlikely given lack of findings such as flank pain, hematuria, etc. UA does not suggest
infection. Bladder scan showed just over 200 mL, patient states that was performed about an hour after he urinated. I do not recommend a Lindquist catheter at this time weighing the risks and benefits and that he is still able to pass his urine.
However, he will require close urology follow-up and plans to do so tomorrow. In the interim he understands that if he is to develop flank or abdominal pain, fever, chills, nausea, vomiting, inability to urinate, or other worrisome signs he will
return to the ER immediately.
ED Attending Note
-
Portions of this chart may have been created with voice recognition software.� Occasional wrong word or��sound alike� substitutions may have occurred due to the inherent limitations of voice recognition software.
Discharge Plan
Departure
Patient Disposition: Home (Routine Discharge)
Date of Disposition: 05/04/25
Time of Disposition: 21:34
Patient with high blood pressure during this ER visit?: Yes
Condition: Good
Discharge Problem:
Dysuria
Instructions: BLOOD PRESSURE
Prescriptions:
No Action
montelukast 10 MG tablet
10 mg PO QPM
dutasteride-tamsulosin 1 EACH capsule, ER multiphase 24 hr
1 ea PO QPM
famotidine 20 mg Tablet
20 mg PO BID Qty: 0
diphenhydramine HCl [Benadryl] 25 mg Capsule
25 mg PO QPM
diltiazem HCl 360 mg capsule,extended release 24hr
360 mg PO QPM
Citrucel (sucrose) Powder
1 tbsp PO TID
albuterol sulfate 90 mcg/actuation Hfa Aerosol Inhaler
2 puff inhalation R Q4HPRN PRN (Reason: sob) Qty: 8.5 0RF
ibuprofen [Advil] 200 mg Tablet
200 mg PO Q6HPRN PRN (Reason: MILD PAIN)
budesonide 0.5 mg/2 mL Suspension For Nebulization
0.5 mg INHALATION R DAILY
cholecalciferol (vitamin D3) [Vitamin D3] 125 mcg (5,000 unit) Tablet
125 mcg PO DAILY
prednisone 10 mg Tablet
See Rx Instructions .ROUTE .COMPLEX Qty: 30 0RF
Rx Instructions:
Take By Mouth:
40 mg daily x3 days, 30 mg daily x3 days,
20 mg daily x3 days, 10 mg daily x3 days.
Referrals:
UNKNOWN - PT DOES,NOT KNOW [Family Provider]
Activity Restrictions/Additional Instructions:
PLEASE CONTACT YOUR UROLOGIST IN THE MORNING FOR CLOSE FOLLOW-UP. IF YOU DEVELOP FEVER, CHILLS, FLANK PAIN, PELVIC GROIN PAIN, ABDOMINAL PAIN, NAUSEA, VOMITING, BLOOD IN YOUR URINE, INABILITY TO URINATE, OR OTHER WORRISOME SIGNS, PLEASE RETURN TO
THE ER IMMEDIATELY!
Interventions
Interventions:
*Risk Screen - Suicide Last Done: 05/04/25 20:53
*General Assessment Last Done: 05/04/25 18:36
*Neglect/Abuse Screening Last Done: 05/04/25 20:53
*ED COVID-19 Vaccine History Last Done: 05/04/25 20:53
*ED Influenza Vaccine History Last Done: 05/04/25 20:53
[facility] Risk Assessment Tool Last Done: 05/04/25 21:20
ED-Male Genitourinary Assessment Last Done: 05/04/25 21:19
Discharge Date and Time
Print Language: [place]VADOREAN
[2025-05-04 20:53] VITALS: BMI 29.7
[2025-05-04 20:55] VITALS: BP 144/70
[2025-05-04 21:03] LABS: Urine Character Clear (Clear)
[2025-05-04 21:08] LABS: Urine Squamous Cell 0-2 /LPF (Few)
[2025-05-04 21:09] LABS: Urine Red Blood Cell 0-2 /HPF (0-2); Urine White Cell 0-2 /HPF (0-5)
== END 2025-05-04 21:47 | disposition home or self-care (01) ==
LOC: EMR 18:28
PROVIDERS: EMERGENCY PHYSICIAN Emergency Medicine
DX: R30.0 Dysuria (principal); I10 Essential (primary) hypertension; J44.1 Chronic obstructive pulmonary disease with (acute) exacerbation; N40.0 Benign prostatic hyperplasia without lower urinary tract symptoms; H35.30 Unspecified macular degeneration; K21.9 Gastro-esophageal reflux disease without esophagitis; K44.9 Diaphragmatic hernia without obstruction or gangrene; Z87.442 Personal history of urinary calculi; Z87.891 Personal history of nicotine dependence
CPT/HCPCS: 99283; 81003; 81015